=== PATIENT | male | born 2005 | race Two or more races ===

== ENCOUNTER 2024-07-12 06:25 | Day surgery (SDC) | payer BC, SELFPAY ==
[2024-07-12] VITALS (12 sets, daily range): BP systolic 109–139; BP diastolic 40–80; BMI 25.8
[2024-07-12] MEDS: TYLENOL 1000 MG PO (08:38)
[2024-07-12] MEDS: CELEBREX 200 MG PO (08:38)
[2024-07-12] MEDS: DILAUDID 0.25 MG IV ×2 (12:57→13:16)
== END 2024-07-12 15:01 | disposition home or self-care (01) ==
LOC: SDS 06:25
PROVIDERS: ATTENDING PHYSICIAN Orthopaedic Surgery
DX: S83.512A Sprain of anterior cruciate ligament of left knee, initial encounter (principal); S83.282A Other tear of lateral meniscus, current injury, left knee, initial encounter; Y93.63 Activity, rugby
CPT/HCPCS: 29888; 29881; C1713